=== PATIENT | female | born 1990 | race Two or more races ===

== ENCOUNTER 2020-05-15 17:05 | Emergency (ER) | payer MEDICAID ==
[~2020-05-15] VITALS: Ht 165.1 cm; Wt 100.0 kg
[2020-05-15 17:58] VITALS: BP 123/86
[2020-05-15] MEDS ORDERED: NEOM10DR32 RIGHT EAR (18:28)
--- NOTE | 2020-05-15 18:28 | PHYS DOC ---
Past Medical History Past Medical History: No Pertinent History Past Surgical History: , Other Additional Past Surgical Histo: RIGHT FOOT SX Smoking Status: Never Smoker Alcohol Use: None General Adult EDM: Chief Complaint: EARACHE/EAR PAIN HPI: HPI: Patient is a 29 year old female who presents to the ED today complaining of moderate sharp pain to the right ear that radiates to her teeth and her head, symptoms have been going on for 2 weeks. Patient denies anything specifically exacerbating or relieving her symptoms. She states she was seen at [facility] 2 weeks ago and was given antibiotics eardrops which she has used with no relief. She does not remember the name of the medicine Review of Systems: Review of Systems: Constitutional: Denies fever or chills. [] Eyes: Denies change in visual acuity. [] HENT: Reports right ear pain. Denies nasal congestion or sore throat. [] Respiratory: Denies cough or shortness of breath. [] Cardiovascular: Denies chest pain or edema. [] GI: Denies abdominal pain, nausea, vomiting, bloody stools or diarrhea. [] : Denies dysuria. [] Musculoskeletal: Denies back pain or joint pain. [] Integument: Denies rash. [] Neurologic: Denies headache, focal weakness or sensory changes. [] Psychiatric: Denies depression or anxiety. [] Heart Score: Risk Factors: Risk Factors: DM, Current or recent (<one month) smoker, HTN, HLP, family history of CAD, obesity. Risk Scores: Score 0 - 3: 2.5% MACE over next 6 weeks - Discharge Home Score 4 - 6: 20.3% MACE over next 6 weeks - Admit for Clinical Observation Score 7 - 10: 72.7% MACE over next 6 weeks - Early Invasive Strategies Allergies: Allergies: Allergies Coded Allergies Type Severity Reaction Last Updated Verified No Known Drug Allergies 05/15/20 No Physical Exam: PE: Constitutional: Well developed, well nourished, no acute distress, non-toxic appearance. [] HENT: Normocephalic, atraumatic, bilateral external ears normal, oropharynx moist, no oral exudates, nose normal. [] Right ear canal hard to examine because of eardrops in the canal. Unable to tell if this is otitis media as well as otitis externa. Eyes: PERRLA, EOMI, conjunctiva normal, no discharge. [] Neck: Normal range of motion, no tenderness, supple, no stridor. [] Cardiovascular:Heart rate regular rhythm, no murmur [] Lungs & Thorax: Bilateral breath sounds clear to auscultation [] Abdomen: Bowel sounds normal, soft, no tenderness, no masses, no pulsatile masses. [] Skin: Warm, dry, no erythema, no rash. [] Back: No tenderness, no CVA tenderness. [] Extremities: No tenderness, no cyanosis, no clubbing, ROM intact, no edema. [] Neurologic: Alert and oriented X 3, normal motor function, normal sensory function, no focal deficits noted. [] Psychologic: Affect normal, judgement normal, mood normal. [] Current Patient Data: Vital Signs: Vital Signs Date Time Temp Pulse Resp B/P (MAP) Pulse Ox O2 Delivery O2 Flow Rate FiO2 05/15/20 17:58 98.2 101 18 123/86 (98) 100 Room Air 98.2 EKG: EKG: [] Radiology/Procedures: Radiology/Procedures: [] Course & Med Decision Making: Course & Med Decision Making Pertinent Labs and Imaging studies reviewed. (See chart for details) This is a 29-year-old female patient presenting to the ED today with right ear pain, symptoms began 2 weeks ago, was seen at [facility] and started on antibiotic eardrops 2 weeks ago currently stating she has no relief. Physical exam is difficult to the right ear because she has quite a bit of eardrops in the canal. Discharge her with a broad-spectrum antibiotic eardrops neomycin polymyxin and provided ENT for follow-up. Shahab Disclaimer: Shahab Disclaimer: This electronic medical record was generated, in whole or in part, using a voice recognition dictation system. Departure Departure Impression: Primary Impression: Right otitis externa Qualified Codes: H60.501 - Unspecified acute noninfective otitis externa, right ear Disposition: 01 DC HOME SELF CARE/HOMELESS Condition: STABLE Referrals: NO PCP (PCP) HOWARD BROOKS MD follow up in one week Patient Instructions: Otitis Externa, [id number] Additional Instructions: Please follow-up with the provided ENT specialist in the next 1 to 2 weeks. Scripts Neomycin/Polymyxin B Sulf/Hc ([id number] EAR SUSP) 10 Ml Drops.susp 4 DROP RIGHT EAR TID for 5 Days, #10 ML 0 Refills Prov: KIKO NEVILLE APRN 05/15/20 KIKO NEVILLE APRN May 15, 2020 18:28
== END 2020-05-15 18:58 | disposition home or self-care (01) ==
LOC: ER 17:05
DX: H60.8X1 Other otitis externa, right ear (principal); Z98.890 Other specified postprocedural states
CPT/HCPCS: 99282